=== PATIENT | male | born 1960 | race Caucasian/White ===

== ENCOUNTER 2019-09-28 21:22 | Inpatient (IN) | payer BC ==
[2019-09-28] MEDS ORDERED: Sodium Chloride 0.9% 10 ML SDV IV PRN (21:30)
[2019-09-28] MEDS ORDERED: Sodium Chloride 0.9% 2.5 ML Syringe FLUSH PRN (21:30)
[2019-09-28] MEDS ORDERED: Sodium Chloride 0.9% 10 ML Syringe FLUSH PRN (21:30)
--- NOTE | 2019-09-28 21:48 | EDM.PDOC ---
ED HPI GENERAL MEDICAL PROBLEM - General Chief Complaint: Neurological Problem Stated Complaint: CONFUSION Time Seen by Provider: 09/28/19 21:43 Source of Information: Reports: Patient, Family History Limitations: Reports: No Limitations - History of Present Illness INITIAL COMMENTS - FREE TEXT/NARRATIVE: 59-year-old male presents the emergency room with a chief complaint of being confused at around 430 at work. The patient still confused stating he just does not feel good. Patient is able to talk and is nonfocal. Patient does not have slurred speech. Patient has a history of hypertension. Onset: Today Duration: Hour(s): (5-10/04), Improving Severity: Moderate Improves with: Reports: None Worsens with: Reports: None Associated Symptoms: Reports: Confusion, Headaches - Related Data Allergies Allergy/AdvReac Type Severity Reaction Status Date / Time Penicillins Allergy Other Verified 09/28/19 21:33 Home Meds: Home Meds . [Unable to Verify Home Med List] 09/28/19 [History] ED ROS GENERAL - Review of Systems Review Of Systems: Comprehensive ROS is negative, except as noted in HPI. Constitutional: Reports: No Symptoms HEENT: Reports: No Symptoms Respiratory: Reports: No Symptoms Cardiovascular: Reports: No Symptoms Endocrine: Reports: No Symptoms GI/Abdominal: Reports: No Symptoms : Reports: No Symptoms Musculoskeletal: Reports: No Symptoms Skin: Reports: No Symptoms Neurological: Reports: Confusion, Headache Psychiatric: Reports: No Symptoms Hematologic/Lymphatic: Reports: No Symptoms Immunologic: Reports: No Symptoms - Physical Exam Exam: See Below Exam Limited By: No Limitations General Appearance: Lethargic, Moderate Distress. No: Alert Eye Exam: Bilateral Eye: Normal Fundi Ears: Normal External Exam, Normal Canal, Hearing Grossly Normal, Normal TMs Throat/Mouth: Normal Inspection, Normal Lips Head Exam: Atraumatic, Normocephalic Neck: Normal Inspection, Supple, Non-Tender, Full Range of Motion Respiratory/Chest: No Respiratory Distress, Lungs Clear, Normal Breath Sounds, No Accessory Muscle Use, Chest Non-Tender Cardiovascular: Normal Peripheral Pulses, Regular Rate, Rhythm, No Edema, No JVD , No Murmur GI/Abdominal: Normal Bowel Sounds, Soft, Non-Tender, No Organomegaly, No Distention, No Abnormal Bruit (Male) Exam: Deferred Rectal (Males) Exam: Deferred Neuro Exam (Abbreviated): Oriented, CN II-XII Intact, Normal Cognition, Normal Gait, Normal Reflexes, No Motor/Sensory Deficits Back Exam: Normal Inspection, Full Range of Motion Extremities: Normal Inspection, Normal Range of Motion, No Pedal Edema, Normal Capillary Refill Psychiatric: Normal Affect, Normal Mood Skin Exam: Warm, Dry, Intact, Normal Color, No Rash EKG INTERPRETATION [place]: Normal P-Wave: Enlarged QRS: Wide Course - Vital Signs Text/Narrative:: 72-year-old male presents the emergency room chief complaint of having altered mental status at about 430 this afternoon. Patient had a blank stare was nonfocal could speak but he was not at his normal baseline. Patient has a history of hypertension no problems Patient found to have a negative CT scan and normal labs patient is not hyper glycemic. At is now at his baseline. Patient is oriented and stable. Patient has had normal EKGs and cardiac enzymes. Assessment on this patient is discussed case with Dr. Conteh patient will be admitted to the hospital telemetry TIA Last Recorded V/S: Last Vital Signs Temp 97.9 F 09/28/19 21:33 Pulse 62 09/28/19 22:30 Resp 18 09/28/19 22:30 BP 140/74 09/28/19 22:30 Pulse Ox 98 09/28/19 22:30 - Orders/Labs/Meds Orders: Active Orders 24 hr Category Date Time Status Assess Neurological Status [RC] ASDIRECTED Care 09/28/19 21:30 Active Initiate Acute Stroke Protocol [RC] STAT Care 09/28/19 21:30 Active NIH Stroke Scale [RC] ASDIRECTED Care 09/28/19 21:30 Active Stroke Education, General [RC] Click to Edit Care 09/28/19 21:30 Active Vital Signs [RC] Q15M Care 09/28/19 21:30 Active Head wo Cont [CT] Stat Exams 09/28/19 21:30 Taken Sodium Chloride 0.9% [Normal Saline] Med 09/28/19 21:30 Active 10 ml IV ASDIRECTED PRN Sodium Chloride 0.9% [Saline Flush] Med 09/28/19 21:30 Active 10 ml FLUSH ASDIRECTED PRN Sodium Chloride 0.9% [Saline Flush] Med 09/28/19 21:30 Active 2.5 ml FLUSH ASDIRECTED PRN Peripheral IV Insertion Adult [OM.PC] Stat Oth 09/28/19 21:30 Ordered Medication Orders Sodium Chloride (Saline Flush) 10 ml FLUSH ASDIRECTED PRN PRN Reason: Keep Vein Open Sodium Chloride (Saline Flush) 2.5 ml FLUSH ASDIRECTED PRN PRN Reason: Keep Vein Open Sodium Chloride (Normal Saline) 10 ml IV ASDIRECTED PRN PRN Reason: IV Use Labs: Laboratory Tests 09/28/19 09/28/19 09/28/19 Range/Units 21:45 21:45 21:45 WBC 7.07 (4.0-11.0) K/uL RBC 4.94 (4.50-5.90) M/uL Hgb 15.5 (13.0-17.0) g/dL Hct 44.2 (38.0-50.0) % MCV 89.5 (80.0-98.0) fL MCH 31.4 (27.0-32.0) pg MCHC 35.1 (31.0-37.0) g/dL RDW Std Deviation 41.6 (28.0-62.0) fl RDW Coeff of Ralf 13 (11.0-15.0) % Plt Count 247 (150-400) K/uL MPV 11.00 (7.40-12.00) fL Neut % (Auto) 58.1 (48.0-80.0) % Lymph % (Auto) 25.5 (16.0-40.0) % [place] % (Auto) 6.5 (0.0-15.0) % Eos % (Auto) 8.5 H (0.0-7.0) % Baso % (Auto) 1.4 (0.0-1.5) % Neut # (Auto) 4.1 (1.4-5.7) K/uL Lymph # (Auto) 1.8 (0.6-2.4) K/uL [place] # (Auto) 0.5 (0.0-0.8) K/uL Eos # (Auto) 0.6 (0.0-0.7) K/uL Baso # (Auto) 0.1 (0.0-0.1) K/uL Nucleated RBC % 0.0 /100WBC Nucleated RBCs # 0 K/uL INR 1.04 APTT 26.8 (18.6-31.3) SEC Sodium 140 (136-148) mmol/L Potassium 3.7 (3.5-5.1) mmol/L Chloride 104 (98-107) mmol/L Carbon Dioxide 25.8 (21.0-32.0) mmol/L BUN 19 H (7.0-18.0) mg/dL Creatinine 1.0 (0.8-1.3) mg/dL Est Cr Clr Drug Dosing 81.50 mL/min Estimated GFR (MDRD) > 60.0 ml/min Glucose 131 H (74-106) mg/dL Calcium 8.6 (8.5-10.1) mg/dL Total Bilirubin 0.5 (0.2-1.0) mg/dL AST 37 (15-37) IU/L ALT 95 H (14-63) IU/L Alkaline Phosphatase 74 (46-116) U/L Troponin I < 0.050 (0.000-0.056) ng/mL Total Protein 7.4 (6.4-8.2) g/dL Albumin 4.0 (3.4-5.0) g/dL Globulin 3.4 (2.6-4.0) g/dL Albumin/Globulin Ratio 1.2 (0.9-1.6) TSH 3rd Generation 3.39 (0.36-3.74) uIU/mL Urine Color Urine Appearance Urine pH (5.0-8.0) Ur Specific [place] (1.001-1.035) Urine Protein (NEGATIVE) mg/dL Urine Glucose (UA) (NEGATIVE) mg/dL Urine Ketones (NEGATIVE) mg/dL Urine Occult Blood (NEGATIVE) Urine Nitrite (NEGATIVE) Urine Bilirubin (NEGATIVE) Urine Urobilinogen (<2.0) EU/dL Ur Leukocyte Esterase (NEGATIVE) Urine RBC (0-2/HPF) Urine WBC (0-5/HPF) Ur Epithelial Cells (NONE-FEW) Urine Bacteria (NEGATIVE) 09/28/19 Range/Units 22:40 WBC (4.0-11.0) K/uL RBC (4.50-5.90) M/uL Hgb (13.0-17.0) g/dL Hct (38.0-50.0) % MCV (80.0-98.0) fL MCH (27.0-32.0) pg MCHC (31.0-37.0) g/dL RDW Std Deviation (28.0-62.0) fl RDW Coeff of Ralf (11.0-15.0) % Plt Count (150-400) K/uL MPV (7.40-12.00) fL Neut % (Auto) (48.0-80.0) % Lymph % (Auto) (16.0-40.0) % [place] % (Auto) (0.0-15.0) % Eos % (Auto) (0.0-7.0) % Baso % (Auto) (0.0-1.5) % Neut # (Auto) (1.4-5.7) K/uL Lymph # (Auto) (0.6-2.4) K/uL [place] # (Auto) (0.0-0.8) K/uL Eos # (Auto) (0.0-0.7) K/uL Baso # (Auto) (0.0-0.1) K/uL Nucleated RBC % /100WBC Nucleated RBCs # K/uL INR APTT (18.6-31.3) SEC Sodium (136-148) mmol/L Potassium (3.5-5.1) mmol/L Chloride (98-107) mmol/L Carbon Dioxide (21.0-32.0) mmol/L BUN (7.0-18.0) mg/dL Creatinine (0.8-1.3) mg/dL Est Cr Clr Drug Dosing mL/min Estimated GFR (MDRD) ml/min Glucose (74-106) mg/dL Calcium (8.5-10.1) mg/dL Total Bilirubin (0.2-1.0) mg/dL AST (15-37) IU/L ALT (14-63) IU/L Alkaline Phosphatase (46-116) U/L Troponin I (0.000-0.056) ng/mL Total Protein (6.4-8.2) g/dL Albumin (3.4-5.0) g/dL Globulin (2.6-4.0) g/dL Albumin/Globulin Ratio (0.9-1.6) TSH 3rd Generation (0.36-3.74) uIU/mL Urine Color YELLOW Urine Appearance CLEAR Urine pH 7.0 (5.0-8.0) Ur Specific [place] 1.020 (1.001-1.035) Urine Protein NEGATIVE (NEGATIVE) mg/dL Urine Glucose (UA) NEGATIVE (NEGATIVE) mg/dL Urine Ketones NEGATIVE (NEGATIVE) mg/dL Urine Occult Blood NEGATIVE (NEGATIVE) Urine Nitrite NEGATIVE (NEGATIVE) Urine Bilirubin NEGATIVE (NEGATIVE) Urine Urobilinogen 0.2 (<2.0) EU/dL Ur Leukocyte Esterase TRACE H (NEGATIVE) Urine RBC 0-1 (0-2/HPF) Urine WBC 0-3 (0-5/HPF) Ur Epithelial Cells RARE (NONE-FEW) Urine Bacteria FEW (NEGATIVE) Meds: Medications Generic Name Dose Route Start Last Admin Trade Name Freq PRN Reason Stop Dose Admin Sodium Chloride 10 ml 09/28/19 21:30 Saline Flush FLUSH ASDIRECTED PRN Keep Vein Open Sodium Chloride 2.5 ml 09/28/19 21:30 Saline Flush FLUSH ASDIRECTED PRN Keep Vein Open Sodium Chloride 10 ml 09/28/19 21:30 Normal Saline IV ASDIRECTED PRN IV Use Departure - Departure Time of Disposition: 00:45 Disposition: Admitted As Inpatient 68 Condition: Good Clinical Impression: TIA (transient ischemic attack) - Discharge Information Referrals: Russ Turcios MD [Primary Care Provider] - Forms: ED Department Discharge Sepsis Event Note - Evaluation Sepsis Screening Result: No Definite Risk - Focused Exam Vital Signs: Vital Signs Temp Pulse Resp BP Pulse Ox 09/28/19 22:30 62 18 140/74 98 09/28/19 22:00 72 18 150/100 H 97 09/28/19 21:33 97.9 F 90 14 139/115 H 93 L Date Exam was Performed: 09/29/19 Time Exam was Performed: 00:39
--- NOTE | 2019-09-28 22:05 | CR ---
Indication: Stroke code. Confusion. Technique: AP portable view of the chest. Comparison: None Findings: The heart is normal in size. The lungs are clear. No infiltrate, pleural effusion, or pneumothorax is identified. Impression: No acute cardiopulmonary process Dictated by Roshni Perez MD @ Sep 28 2019 10:04PM Signed by Dr. Roshni Perez @ Sep 28 2019 10:05PM
[2019-09-28 22:20] LABS: BLOOD UREA NITROGEN,BUN 19 mg/dL (7.0-18.0); CARBON DIOXIDE,CO2 25.8 mmol/L (21.0-32.0); CHLORIDE,CL 104 mmol/L (98-107); GLUCOSE RANDOM 131 mg/dL (74-106); POTASSIUM,K 3.7 mmol/L (3.5-5.1); SODIUM,NA 140 mmol/L (136-148)
[2019-09-29 06:59] LABS: BLOOD UREA NITROGEN,BUN 18 mg/dL (7.0-18.0); CARBON DIOXIDE,CO2 26.7 mmol/L (21.0-32.0); CHLORIDE,CL 105 mmol/L (98-107); GLUCOSE RANDOM 88 mg/dL (74-106); POTASSIUM,K 3.9 mmol/L (3.5-5.1); SODIUM,NA 141 mmol/L (136-148)
--- NOTE | 2019-09-29 12:17 | PCM.HP.2 ---
H&P History of Present Illness - General Date of Service: 09/29/19 Admit Problem/Dx: Admission Diagnosis/Problem Admission Diagnosis/Problem TIA, Transient ischemic attack Source of Information: Patient, Family - History of Present Illness Initial Comments - Free Text/Narative: 59 yo male w/ PMH of anxiety/OCD and asthma presented to the ED yesterday after having a new onset sensation of feeling "off: states he felt like objects had turned black and he could not remember what happened or form new memories throughout this period. In room pt. mentions he is having a hard time trying to describe what he experienced. Of note pt. was at the end of his shift, 430 pm yesterday when this began; lasted for 3-hours or so and required his son to take him home from work. Denied any preceding , alleviating/exacerbating factors. States he is still kind confused about what happened. Denied any chest pain, shortness of breath, headache or other changes. Mentions he has been on the current regimen of medication for years. Denies any pain throughout this time. ER Course: CT head negative; labs unremarkable. More or less at baseline w/o neurological deficits ; however states his memory is still lacking regarding this epsiode. Bedside: denies any pain. mentions he has never had episodes with his memory prior to this event. Denies any discomfort now. Still having some issues w/ his memory of the episode. Short term memory recall WNL. - Related Data Allergies/Adverse Reactions: Allergies Allergy/AdvReac Type Severity Reaction Status Date / Time Penicillins Allergy Other Verified 09/29/19 02:41 Home Medications: Home Meds Albuterol Sulfate [Albuterol Sulfate Hfa] 8.5 gm IH ASDIRECTED PRN 09/29/19 [ History] Budesonide/Formoterol Fumarate [Symbicort 160-4.5 Mcg Inhaler] 1 puff IH DAILY 09/29/19 [History] Escitalopram Oxalate [Lexapro] 10 mg PO DAILY 09/29/19 [History] Krill/Om3/Dha/Epa/Om6/Lip/Astx [Krill Oil 1,500 mg Softgel] 1,500 mg PO BEDTIME 09/29/19 [History] Lisinopril [Zestril] 20 mg PO BEDTIME 09/29/19 [History] Magnesium Oxide [Magnesium] 400 mg PO BEDTIME 09/29/19 [History] Montelukast [Singulair] 10 mg PO BEDTIME 09/29/19 [History] Past Medical History Cardiovascular History: Reports: Hypertension Respiratory History: Reports: Asthma Gastrointestinal History: Reports: GERD Genitourinary History: Reports: None Neurological History: Reports: None Psychiatric History: Reports: Anxiety, OCD Endocrine/Metabolic History: Reports: None Hematologic History: Reports: None Immunologic History: Reports: None Oncologic (Cancer) History: Reports: None Dermatologic History: Reports: Psoriasis - Infectious Disease History Infectious Disease History: Reports: None - Past Surgical History Head Surgeries/Procedures: Reports: None GI Surgical History: Reports: None Musculoskeletal Surgical History: Reports: Other (See Below) Other Musculoskeletal Surgeries/Procedures:: Right knee surgery for fracture. Left Hip surgery for torn ligament Social & Family History - Family History Family Medical History: Noncontributory - Tobacco Use Smoking Status *Q: Former Smoker Used Tobacco, but Quit: Yes Month/Year Tobacco Last Used: 20 years ago Second Hand Smoke Exposure: No - Caffeine Use Caffeine Use: Reports: Coffee Other Caffeine Use: 1 large mug per day - Recreational Drug Use Recreational Drug Use: No H&P Review of Systems - Review of Systems: Review Of Systems: See Below General: Reports: No Symptoms. Denies: Fever, Chills, Malaise, Weakness, Fatigue HEENT: Reports: No Symptoms Pulmonary: Reports: No Symptoms Cardiovascular: Reports: No Symptoms. Denies: Chest Pain, Palpitations, Dyspnea on Exertion Gastrointestinal: Reports: No Symptoms. Denies: Abdominal Pain, Constipation, Diarrhea Genitourinary: Reports: No Symptoms Musculoskeletal: Reports: No Symptoms Psychiatric: Reports: No Symptoms Neurological: Reports: No Symptoms Immunologic: Reports: No Symptoms Exam - Exam Exam: See Below - Vital Signs Vital Signs: Last Vital Signs Temp 97.8 F 09/29/19 07:25 Pulse 83 09/29/19 09:20 Resp 18 09/29/19 07:25 BP 122/85 09/29/19 09:20 Pulse Ox 93 L 09/29/19 07:25 Weight: 186 lb 9.6 oz - Exam Quality Assessment: No: Supplemental Oxygen General: Alert, Oriented, Cooperative HEENT: EOMI, Mucosa Moist & [place] Neck: Supple, Trachea Midline Lungs: Clear to Auscultation, Normal Respiratory Effort Cardiovascular: Regular Rate, Regular Rhythm GI/Abdominal Exam: Soft, Non-Tender Extremities: Normal Inspection Skin: Warm, Dry Neurological: Cranial Nerves Intact, Reflexes Equal Bilateral, Strength Equal Bilateral, Normal Gait, Normal Speech, Other (word retreival intact; short temr memeory recall intact. oriented to person/place/time. no acute defecits appreciated. ). No: Focal Deficit Neuro Extensive - Mental Status: Alert, Oriented x3, Normal Mood/Affect, Normal Cognition, Memory Intact, Memory Loss-Recent Events. No: Disorientation to Person, Disorientation to Place, Disorientation to Time Neuro Extensive - Motor, Sensory, Reflexes: CN II-XII Intact, Normal Gait, Normal Reflexes Psychiatric: Alert, Normal Affect, Normal Mood - Patient Data Lab Results Last 24 hrs: Laboratory Results - last 24 hr 09/28/19 09/28/19 09/28/19 Range/Units 21:45 21:45 21:45 WBC 7.07 (4.0-11.0) K/uL RBC 4.94 (4.50-5.90) M/uL Hgb 15.5 (13.0-17.0) g/dL Hct 44.2 (38.0-50.0) % MCV 89.5 (80.0-98.0) fL MCH 31.4 (27.0-32.0) pg MCHC 35.1 (31.0-37.0) g/dL RDW Std Deviation 41.6 (28.0-62.0) fl RDW Coeff of Ralf 13 (11.0-15.0) % Plt Count 247 (150-400) K/uL MPV 11.00 (7.40-12.00) fL Neut % (Auto) 58.1 (48.0-80.0) % Lymph % (Auto) 25.5 (16.0-40.0) % [place] % (Auto) 6.5 (0.0-15.0) % Eos % (Auto) 8.5 H (0.0-7.0) % Baso % (Auto) 1.4 (0.0-1.5) % Neut # (Auto) 4.1 (1.4-5.7) K/uL Lymph # (Auto) 1.8 (0.6-2.4) K/uL [place] # (Auto) 0.5 (0.0-0.8) K/uL Eos # (Auto) 0.6 (0.0-0.7) K/uL Baso # (Auto) 0.1 (0.0-0.1) K/uL Nucleated RBC % 0.0 /100WBC Nucleated RBCs # 0 K/uL INR 1.04 APTT 26.8 (18.6-31.3) SEC Sodium 140 (136-148) mmol/L Potassium 3.7 (3.5-5.1) mmol/L Chloride 104 (98-107) mmol/L Carbon Dioxide 25.8 (21.0-32.0) mmol/L BUN 19 H (7.0-18.0) mg/dL Creatinine 1.0 (0.8-1.3) mg/dL Est Cr Clr Drug Dosing 81.50 mL/min Estimated GFR (MDRD) > 60.0 ml/min Glucose 131 H (74-106) mg/dL Calcium 8.6 (8.5-10.1) mg/dL Total Bilirubin 0.5 (0.2-1.0) mg/dL AST 37 (15-37) IU/L ALT 95 H (14-63) IU/L Alkaline Phosphatase 74 (46-116) U/L Troponin I < 0.050 (0.000-0.056) ng/mL Total Protein 7.4 (6.4-8.2) g/dL Albumin 4.0 (3.4-5.0) g/dL Globulin 3.4 (2.6-4.0) g/dL Albumin/Globulin Ratio 1.2 (0.9-1.6) TSH 3rd Generation 3.39 (0.36-3.74) uIU/mL Urine Color Urine Appearance Urine pH (5.0-8.0) Ur Specific [place] (1.001-1.035) Urine Protein (NEGATIVE) mg/dL Urine Glucose (UA) (NEGATIVE) mg/dL Urine Ketones (NEGATIVE) mg/dL Urine Occult Blood (NEGATIVE) Urine Nitrite (NEGATIVE) Urine Bilirubin (NEGATIVE) Urine Urobilinogen (<2.0) EU/dL Ur Leukocyte Esterase (NEGATIVE) Urine RBC (0-2/HPF) Urine WBC (0-5/HPF) Ur Epithelial Cells (NONE-FEW) Urine Bacteria (NEGATIVE) 09/28/19 09/29/19 09/29/19 Range/Units 22:40 06:10 06:10 WBC 5.71 (4.0-11.0) K/uL RBC 4.62 (4.50-5.90) M/uL Hgb 14.3 (13.0-17.0) g/dL Hct 42.0 (38.0-50.0) % MCV 90.9 (80.0-98.0) fL MCH 31.0 (27.0-32.0) pg MCHC 34.0 (31.0-37.0) g/dL RDW Std Deviation 42.7 (28.0-62.0) fl RDW Coeff of [place]alf 13 (11.0-15.0) % Plt Count 185 (150-400) K/uL MPV 10.50 (7.40-12.00) fL Neut % (Auto) 46.4 L (48.0-80.0) % Lymph % (Auto) 30.5 (16.0-40.0) % [place] % (Auto) 10.2 (0.0-15.0) % Eos % (Auto) 11.0 H (0.0-7.0) % Baso % (Auto) 1.9 H (0.0-1.5) % Neut # (Auto) 2.7 (1.4-5.7) K/uL Lymph # (Auto) 1.7 (0.6-2.4) K/uL [place] # (Auto) 0.6 (0.0-0.8) K/uL Eos # (Auto) 0.6 (0.0-0.7) K/uL Baso # (Auto) 0.1 (0.0-0.1) K/uL Nucleated RBC % 0.0 /100WBC Nucleated RBCs # 0 K/uL INR APTT (18.6-31.3) SEC Sodium 141 (136-148) mmol/L Potassium 3.9 (3.5-5.1) mmol/L Chloride 105 (98-107) mmol/L Carbon Dioxide 26.7 (21.0-32.0) mmol/L BUN 18 (7.0-18.0) mg/dL Creatinine 0.9 (0.8-1.3) mg/dL Est Cr Clr Drug Dosing 90.56 mL/min Estimated GFR (MDRD) > 60.0 ml/min Glucose 88 (74-106) mg/dL Calcium 8.5 (8.5-10.1) mg/dL Total Bilirubin (0.2-1.0) mg/dL AST (15-37) IU/L ALT (14-63) IU/L Alkaline Phosphatase (46-116) U/L Troponin I (0.000-0.056) ng/mL Total Protein (6.4-8.2) g/dL Albumin (3.4-5.0) g/dL Globulin (2.6-4.0) g/dL Albumin/Globulin Ratio (0.9-1.6) TSH 3rd Generation (0.36-3.74) uIU/mL Urine Color YELLOW Urine Appearance CLEAR Urine pH 7.0 (5.0-8.0) Ur Specific [place] 1.020 (1.001-1.035) Urine Protein NEGATIVE (NEGATIVE) mg/dL Urine Glucose (UA) NEGATIVE (NEGATIVE) mg/dL Urine Ketones NEGATIVE (NEGATIVE) mg/dL Urine Occult Blood NEGATIVE (NEGATIVE) Urine Nitrite NEGATIVE (NEGATIVE) Urine Bilirubin NEGATIVE (NEGATIVE) Urine Urobilinogen 0.2 (<2.0) EU/dL Ur Leukocyte Esterase TRACE H (NEGATIVE) Urine RBC 0-1 (0-2/HPF) Urine WBC 0-3 (0-5/HPF) Ur Epithelial Cells RARE (NONE-FEW) Urine Bacteria FEW (NEGATIVE) Result Diagrams: 09/29/19 06:10 09/29/19 06:10 Sepsis Event Note - Evaluation Sepsis Screening Result: No Definite Risk - Focused Exam Vital Signs: Vital Signs Temp Pulse Resp BP Pulse Ox 09/29/19 09:20 83 122/85 09/29/19 09:15 83 123/96 H 09/29/19 09:10 78 134/97 H 09/29/19 07:25 97.8 F 77 18 124/80 93 L 09/29/19 04:00 97.8 F 74 18 129/82 93 L 09/29/19 01:50 97.6 F 77 18 136/94 H 95 09/29/19 00:59 98.2 F 71 18 131/92 H 98 Date Exam was Performed: 09/29/19 Time Exam was Performed: 12:23 Problem List Initiated/Reviewed/Updated: Yes Orders Last 24hrs: Active Orders 24 hr Category Date Time Status Admission Status [Patient Status] [ADT] Stat ADT 09/29/19 00:46 Active Antiembolic Devices [RC] PER UNIT ROUTINE Care 09/29/19 00:58 Active Assess Neurological Status [RC] ASDIRECTED Care 09/28/19 21:30 Active Cardiac Monitoring [RC] CONTINUOUS Care 09/29/19 00:58 Active NIH Stroke Scale [RC] ASDIRECTED Care 09/28/19 21:30 Active Oxygen Therapy [RC] PRN Care 09/29/19 00:58 Active Stroke Education, General [RC] Click to Edit Care 09/28/19 21:30 Active Telemetry Monitoring [Cardiac Monitoring] [RC] Q8H Care 09/29/19 00:00 Active VTE/DVT Education [RC] PER UNIT ROUTINE Care 09/29/19 00:58 Active Vital Signs [RC] Q4H Care 09/29/19 00:58 Active Regular Diet [DIET] Diet 09/29/19 Breakfast Active Head wo Cont [CT] Stat Exams 09/28/19 21:30 Taken Sodium Chloride 0.9% [Normal Saline] Med 09/28/19 21:30 Active 10 ml IV ASDIRECTED PRN Sodium Chloride 0.9% [Saline Flush] Med 09/28/19 21:30 Active 10 ml FLUSH ASDIRECTED PRN Sodium Chloride 0.9% [Saline Flush] Med 09/28/19 21:30 Active 2.5 ml FLUSH ASDIRECTED PRN Peripheral IV Insertion Adult [OM.PC] Stat Oth 09/28/19 21:30 Ordered Sequential Compression Device [OM.PC] Per Unit Routine Oth 09/29/19 00:58 Ordered Medication Orders Sodium Chloride (Saline Flush) 10 ml FLUSH ASDIRECTED PRN PRN Reason: Keep Vein Open Sodium Chloride (Saline Flush) 2.5 ml FLUSH ASDIRECTED PRN PRN Reason: Keep Vein Open Sodium Chloride (Normal Saline) 10 ml IV ASDIRECTED PRN PRN Reason: IV Use Assessment/Plan Comment:: Assessment: 1. Confusion possibly secondary to Vasovagal vs TIA vs TGA 2. PMH: anxiety/OCD/Asthma Plan: admit to observation. Full code. 1. Confusion: concerns for vaso-vagal vs. TGA; CT head reassuring ; MRI possibly needed however not available in facility this weekend. pt. currently stable; will continue to monitor pt. at this time. Denies any symptoms except for some memory recall issues. Continue to monitor. CBC/CMP in AM. Orthostatics reassuring. 2. Continue home medications 3. pt understood plan.
[2019-09-29] MEDS ORDERED: Albuterol 6.7 GM Inhaler INH PRN (18:46)
[2019-09-29] MEDS: Escitalopram 10 MG Tab PO SCH (19:28)
[2019-09-29] MEDS: Acetaminophen 325 MG Tab PO PRN (20:47)
[2019-09-29] MEDS ORDERED: Lisinopril 10 MG Tab PO SCH (21:00)
[2019-09-29] MEDS ORDERED: Montelukast 10 MG Tab PO SCH (21:00)
[2019-09-29] MEDS ORDERED: Magnesium Oxide 400 MG Tab PO SCH (21:00)
[2019-09-30 06:34] LABS: BLOOD UREA NITROGEN,BUN 19 mg/dL (7.0-18.0); CARBON DIOXIDE,CO2 28.1 mmol/L (21.0-32.0); CHLORIDE,CL 108 mmol/L (98-107); GLUCOSE RANDOM 97 mg/dL (74-106); POTASSIUM,K 4.3 mmol/L (3.5-5.1); SODIUM,NA 143 mmol/L (136-148)
[2019-09-30] MEDS: Escitalopram 10 MG Tab PO SCH (08:39)
[2019-09-30] MEDS: Acetaminophen 325 MG Tab PO PRN (08:40)
[2019-09-30] MEDS ORDERED: Budesonide/Formoterol 160-4.5 MCG/Puff 6 GM Inhaler INH SCH (09:00)
--- NOTE | 2019-09-30 11:37 | PCM.DCSUM1 ---
Discharge Summary - Discharge Data Discharge Date: 09/30/19 Discharge Disposition: Home, Self-Care 01 Condition: Fair - Referral to Home Health Primary Care Physician: Russ Turcios MD - Patient Summary/Data Hospital Course: 59 yo male who was admitted for an episode of altered mental status. Patient had a 3 hour period of memory loss. He was at work and family noted him to be staring blankly and he need help walking and getting home. He was monitored for two nights without any events on telemetry. CT scan of head was negative. Lab work was within normal limits. He reports he is feeling like his normal self and is requesting discharge. Patient was discharge home to have follow up with Dr. Turcios. - Discharge Plan Home Medications: Home Meds Albuterol Sulfate [Albuterol Sulfate Hfa] 8.5 gm IH ASDIRECTED PRN 09/29/19 [ History] Budesonide/Formoterol Fumarate [Symbicort 160-4.5 Mcg Inhaler] 1 puff IH DAILY 09/29/19 [History] Escitalopram Oxalate [Lexapro] 10 mg PO DAILY 09/29/19 [History] Krill/Om3/Dha/Epa/Om6/Lip/Astx [Krill Oil 1,500 mg Softgel] 1,500 mg PO BEDTIME 09/29/19 [History] Lisinopril [Zestril] 20 mg PO BEDTIME 09/29/19 [History] Magnesium Oxide [Magnesium] 400 mg PO BEDTIME 09/29/19 [History] Montelukast [Singulair] 10 mg PO BEDTIME 09/29/19 [History] Patient Handouts: Stroke Prevention, [id number], Transient Ischemic Attack, [id number] Referrals: Russ Turcios MD [Primary Care Provider] - - Discharge Summary/Plan Comment DC Time >30 min.: No - Patient Data Vitals - Most Recent: Last Vital Signs Temp 36.8 C 09/30/19 07:15 Pulse 76 09/30/19 07:15 Resp 16 09/30/19 07:15 BP 113/74 09/30/19 07:15 Pulse Ox 92 L 09/30/19 07:15 Weight - Most Recent: 84.64 kg I&O - Last 24 hours: Intake & Output 09/29/19 09/30/19 09/30/19 22:59 06:59 14:59 Intake Total 500 800 Output Total 400 720 Balance 100 80 Lab Results - Last 24 hrs: Laboratory Results - last 24 hr 09/30/19 09/30/19 Range/Units 05:45 05:45 WBC 5.42 (4.0-11.0) K/uL RBC 4.52 (4.50-5.90) M/uL Hgb 13.9 (13.0-17.0) g/dL Hct 41.4 (38.0-50.0) % MCV 91.6 (80.0-98.0) fL MCH 30.8 (27.0-32.0) pg MCHC 33.6 (31.0-37.0) g/dL RDW Std Deviation 42.9 (28.0-62.0) fl RDW Coeff of Ralf 13 (11.0-15.0) % Plt Count 184 (150-400) K/uL MPV 10.10 (7.40-12.00) fL Neut % (Auto) 44.1 L (48.0-80.0) % Lymph % (Auto) 32.5 (16.0-40.0) % Moca % (Auto) 9.2 (0.0-15.0) % Eos % (Auto) 11.8 H (0.0-7.0) % Baso % (Auto) 2.4 H (0.0-1.5) % Neut # (Auto) 2.4 (1.4-5.7) K/uL Lymph # (Auto) 1.8 (0.6-2.4) K/uL Moca # (Auto) 0.5 (0.0-0.8) K/uL Eos # (Auto) 0.6 (0.0-0.7) K/uL Baso # (Auto) 0.1 (0.0-0.1) K/uL Nucleated RBC % 0.0 /100WBC Nucleated RBCs # 0 K/uL Sodium 143 (136-148) mmol/L Potassium 4.3 (3.5-5.1) mmol/L Chloride 108 H (98-107) mmol/L Carbon Dioxide 28.1 (21.0-32.0) mmol/L BUN 19 H (7.0-18.0) mg/dL Creatinine 1.0 (0.8-1.3) mg/dL Est Cr Clr Drug Dosing 81.50 mL/min Estimated GFR (MDRD) > 60.0 ml/min Glucose 97 (74-106) mg/dL Calcium 8.8 (8.5-10.1) mg/dL Total Bilirubin 0.5 (0.2-1.0) mg/dL AST 42 H (15-37) IU/L ALT 96 H (14-63) IU/L Alkaline Phosphatase 64 (46-116) U/L Total Protein 6.2 L (6.4-8.2) g/dL Albumin 3.6 (3.4-5.0) g/dL Globulin 2.6 (2.6-4.0) g/dL Albumin/Globulin Ratio 1.4 (0.9-1.6) Med Orders - Current: Current Medications Acetaminophen (Tylenol) 650 mg PO Q6H PRN PRN Reason: Pain Last Admin: 09/30/19 08:40 Dose: 650 mg Albuterol (Proventil Hfa) 0 gm INH ASDIRECTED PRN PRN Reason: Wheezing Budesonide/Formoterol Fumarate (Symbicort 160-4.5 Mcg) 0 gm INH DAILY JOSE ANGEL Last Admin: 09/30/19 08:41 Dose: Not Given Escitalopram Oxalate (Lexapro) 10 mg PO DAILY JOSE ANGEL Last Admin: 09/30/19 08:39 Dose: 10 mg Lisinopril (Prinivil) 20 mg PO BEDTIME JOSE ANGEL Last Admin: 09/29/19 20:47 Dose: 20 mg Magnesium Oxide (Magnesium Oxide) 400 mg PO BEDTIME JOSE ANGEL Last Admin: 09/29/19 20:47 Dose: 400 mg Montelukast Sodium (Singulair) 10 mg PO BEDTIME JOSE ANGEL Last Admin: 09/29/19 20:46 Dose: 10 mg Sodium Chloride (Saline Flush) 10 ml FLUSH ASDIRECTED PRN PRN Reason: Keep Vein Open Sodium Chloride (Saline Flush) 2.5 ml FLUSH ASDIRECTED PRN PRN Reason: Keep Vein Open Sodium Chloride (Normal Saline) 10 ml IV ASDIRECTED PRN PRN Reason: IV Use
--- NOTE | 2019-10-01 14:50 | CT ---
EXAM DATE: 09/29/19 PATIENT'S AGE: 59 Patient: DEVAUGHN BRYSON Facility: [facility], [facility] : 1960 Study: CT-Head STROKE PROTOCOL -09/28/2019 9:53:29 PM Ordering Physician: trisha Final Report: INDICATION: Confusion. Stroke protocol TECHNIQUE: CT head without contrast. COMPARISON: None available FINDINGS: There is mild cerebral, and [id number] cerebellar, atrophy. The ventricles are within normal limits for the patient`s age. There is no mass effect or midline shift. There is no loss of watson-white differentiation. There is no evidence of an acute intracranial hemorrhage. No acute calvarial fracture is seen. Trace mucosal thickening is seen in the left frontal sinus inferior recess, ethmoid sinuses and right maxillary sinus. There is partial opacification of few mastoid tip air cells. The visualized orbits are within normal limits. IMPRESSION: No evidence of an acute intracranial hemorrhage, mass effect or loss of watson- white differentiation. Atrophy. Minor paranasal sinus mucosal disease and minimal mastoid tip disease. The findings were communicated to Dr. Brown on 09/28/2019 at 10:11 p.m.. Dictated by Meet Santiago MD @ 09/28/2019 10:13:25 PM Please note that all CT scans at this facility use dose modulation, iterative reconstruction, and/or weight-based dosing when appropriate to reduce radiation dose to as low as reasonably achievable. Dictated by: Meet Santiago MD @ 09/28/2019 22:13:34 Signed by: Meet Santiago MD @09/28/2019 10:13:34 PM (Electronic Signature) Report Signed by Proxy. [facility]
== END 2019-09-30 12:00 | disposition home or self-care (01) | DRG 861 ==
LOC: MW.ED 21:22 → MW.MS 09-29 00:46
PROVIDERS: ADMIT Internal Medicine; ATTEND Internal Medicine
DX: R41.82 Altered mental status, unspecified (principal); R41.3 Other amnesia; F41.9 Anxiety disorder, unspecified; F42.9 Obsessive-compulsive disorder, unspecified; J45.909 Unspecified asthma, uncomplicated; I10 Essential (primary) hypertension; K21.9 Gastro-esophageal reflux disease without esophagitis; Z88.0 Allergy status to penicillin; Z79.899 Other long term (current) drug therapy; Z87.891 Personal history of nicotine dependence
CPT/HCPCS: 36415; 70450; 70450-26; 71045; 71045-26; 80048; 80053; 81001; 84443; 84484; 85025; 85610; 85730; 93005; A9270-GY